=== PATIENT | male | born 1960 | race Caucasian/White ===

== ENCOUNTER → 2016-06-16 | Outpatient (CLI) | payer BC ==
--- NOTE | ~2016-06-16 | CT7 ---
[facility] A Service [facility] RADIOLOGY TEXT RESULTS PATIENT: FIDEL CASTILLO LOCATION: [facility] : 58 UNIT #: [id number] AGE: [address]: Monty Edwards MD SEX: M ORDER DR: [id number] [place] [id number] O MR#: [id number] Acc #: [id number] NAME: FIDEL CASTILLO : 1960 SEX: M STUDY DATE/TIME: 06/16/2016 11:26 UNIT: [facility] ROOM: STUDY DESCRIPTION: CT Abdomen Wo Cont Attending Physician: Monty Edwards M.D. Referring Physician: Monty Edwards M.D. Ordering Physician: Monty Edwards M.D. Primary Care Physician: Monty Edwards M.D. MEDICAL IMAGING REPORT This report is preliminary unless electronic signature is present. EXAM CT abdomen without contrast INDICATION Elevated liver enzyme levels. TECHNIQUE Unenhanced CT of the abdomen. This CT exam was performed with one or more of the following radiation dose reduction techniques: automatic exposure control, adjustment of mA and/or kV according to patient size, and iterative reconstruction. COMPARISON 11/05/2009 FINDINGS The included lung bases are clear. Liver measures 17.5 cm in length. The liver has normal morphology. There is diffuse hepatic steatosis. Spleen, kidneys, adrenal glands, pancreas, gallbladder have an unremarkable, unenhanced appearance. The included bowel loops are nondilated. No aggressive-appearing bone lesion. IMPRESSION 1. No acute findings. 2. Hepatic steatosis. Otherwise, liver has normal size and morphology. Dictated by... Silverio Funez M.D. [facility] A Service [facility] RADIOLOGY TEXT RESULTS PATIENT: FIDEL CASTILLO LOCATION: [facility] : 58 UNIT #: [id number] AGE: [address]: Monty Edwards MD SEX: M ORDER DR: THIS IS AN ELECTRONICALLY VERIFIED REPORT Silverio Funez M.D. at 06/17/2016 6:56 AM Carlito TD: 06/16/2016 14:23 JOB #: [id number] MEDICAL IMAGING REPORT
== END | disposition home or self-care (01) ==
LOC: SCT 10:12
DX: R79.89 Other specified abnormal findings of blood chemistry (principal); K76.0 Fatty (change of) liver, not elsewhere classified
CPT/HCPCS: 74150